=== PATIENT | female | born 1990 | race Caucasian/White ===

== ENCOUNTER 2017-04-14 09:11 | Emergency (ER) | payer OTHER ==
[~2017-04-14] VITALS: Ht 165.1 cm; Wt 62.6 kg
[~2017-04-14 09:11] MED LIST: INHALER
--- NOTE | 2017-04-14 09:47 | NUR ---
PATIENT WAS SEEN BY DR SMALL FOR C/O COUGH, COLD SYMPTOMS.
--- NOTE | 2017-04-14 10:06 | NUR ---
DC, RX AND FOLLOW UP INSTRUCTIONS GIVEN AND EXPLAINED TO PATIENT WHO STATES SHE UNDERSTANDS ALL INSTRUCTIONS.
== END 2017-04-14 10:08 | disposition home or self-care (01) ==
LOC: ER 09:11
DX: J20.8 Acute bronchitis due to other specified organisms (principal); J45.909 Unspecified asthma, uncomplicated
CPT/HCPCS: 99282; A4663